=== PATIENT | female | born 1990 | race Caucasian/White ===

== ENCOUNTER 2018-02-02 08:39 | Outpatient (CLI) | payer OTHER | END 2018-02-02 09:03 | disposition home or self-care (01) | LOC: LAB 08:39 | DX: Z34.81 Encounter for supervision of other normal pregnancy, first trimester (principal); Z11.4 Encounter for screening for human immunodeficiency virus [HIV] ==

== ENCOUNTER 2018-08-08 10:47 | Inpatient (IN) | payer OTHER ==
[~2018-08-08] VITALS: Ht 160 cm; Wt 68.0 kg
[2018-09-01] MEDS ORDERED: PRENATAL TABLE1 EAC1 PO (08:21)
[2018-09-01] MEDS ORDERED: VALTREX1000 MG PO (08:21)
== END 2018-09-03 14:16 | disposition home or self-care (01) | DRG 807 ==
LOC: LDR 08-15 11:15 → OB/GYN 09-01 11:55 → LDR 09-04 11:15
PROVIDERS: ADMIT Obstetrics & Gynecology
PROC: 10E0XZZ Delivery of Products of Conception, External Approach (ICD-10-PCS; principal; 2018-09-01)
PROC: 4A1HXCZ Monitoring of Products of Conception, Cardiac Rate, External Approach (ICD-10-PCS; 2018-09-01)
PROC: 0HQ9XZZ Repair Perineum Skin, External Approach (ICD-10-PCS; 2018-09-01)
DX: O70.0 First degree perineal laceration during delivery (principal); Z37.0 Single live birth; Z3A.39 39 weeks gestation of pregnancy

== ENCOUNTER 2018-08-29 09:19 | Outpatient (CLI) | payer OTHER | END 2018-08-29 10:21 | disposition home or self-care (01) | LOC: NST 09:19 | DX: Z34.83 Encounter for supervision of other normal pregnancy, third trimester (principal) ==

== ENCOUNTER 2024-08-29 10:06 | Outpatient (CLI) | payer OTHER ==
[~2024-08-29] VITALS: Ht 157.5 cm; Wt 67.1 kg
[2024-08-29 09:32] VITALS: BP 121/70
[~2024-08-29 10:06] MED LIST: PRENATAL TABLE1 EAC1 PO; VALTREX1000 MG PO
[2024-08-29 13:39] VITALS: BP 121/70
== END 2024-08-29 13:50 | disposition home or self-care (01) ==
LOC: OBS/DEL 10:06
PROVIDERS: ATTEND Obstetrics & Gynecology
DX: O36.8130 Decreased fetal movements, third trimester, not applicable or unspecified (principal); Z3A.28 28 weeks gestation of pregnancy; O26.849 Uterine size-date discrepancy, unspecified trimester; O36.8199 Decreased fetal movements, unspecified trimester, other fetus

== ENCOUNTER 2024-11-01 15:30 | Inpatient (IN) | payer OTHER ==
[~2024-11-01] VITALS: Ht 157.5 cm; Wt 73.0 kg
[2024-11-17] VITALS (8 sets, daily range): BP systolic 116–143; BP diastolic 75–86
[2024-11-17] MEDS ORDERED: RINGERS SOLUTION,LACTATED 1,000 ML IV SCH (01:00)
[2024-11-17] MEDS ORDERED: OXYTOCIN 1,000 ML IV SCH (01:45)
[2024-11-17] MEDS ORDERED: CHLORHEXIDINE GLUCONATE 120 ML BOTTLE TP SCH (01:45)
[2024-11-17] MEDS ORDERED: ERYTHROMYCIN BASE OPHT 1GM EACH TUBE OP ONE (02:00)
[2024-11-17 02:09] LABS: BASO % 0.4 % (0.1-1.2); EOS # 0.04 (0.04-0.54); EOS % 0.7 % (0.7-7.0); LYMPH # 1.83 (1.18-3.74); LYMPH % 33.4 % (19.3-53.1); MEAN PLATELET VOLUME 10.80 fl (9.4-12.4); MONO # 0.46 (0.24-0.82); MONO % 8.4 % (4.7-12.5); NEUT # 3.10 (1.56-6.13); NEUT % 56.6 % (34.0-71.1); RED CELL DISTRIBUTION WIDTH 13.6 % (11.6-14.4)
[2024-11-17 02:19] LABS: INR < 0.93
[2024-11-17 02:24] LABS: ALT/SGPT 15.0 U/L (12-78); AST/SGOT 19.0 U/L (15-37); BILIRUBIN TOTAL 0.41 mg/dL (0.3-1.2); BUN CREA RATIO 13.0 (7.0-25.0); CREATININE SERUM 0.69 mg/dL (0.55-1.02); GFR 97.98; GLOBULINA 3.2 G/DL (2.4-3.5); GLUCOSE FASTING 90.0 mg/dL (65-100); OSMOLALITY SERUM 281.0 MOSM/KG (275-295)
[2024-11-18] VITALS: BP 122/77
[2024-11-18 04:00] VITALS: BP 132/87
[2024-11-18 08:00] VITALS: BP 117/81
[2024-11-18 08:16] LABS: BASO % 0.6 % (0.1-1.2); EOS # 0.15 (0.04-0.54); EOS % 2.1 % (0.7-7.0); LYMPH # 1.84 (1.18-3.74); LYMPH % 25.4 % (19.3-53.1); MEAN PLATELET VOLUME 10.90 fl (9.4-12.4); MONO # 0.44 (0.24-0.82); MONO % 6.1 % (4.7-12.5); NEUT # 4.75 (1.56-6.13); NEUT % 65.5 % (34.0-71.1); RED CELL DISTRIBUTION WIDTH 13.7 % (11.6-14.4)
[2024-11-18 16:47] VITALS: BP 123/82
[2024-11-19] VITALS: BP 120/66
[2024-11-19 04:00] VITALS: BP 116/78
[2024-11-19 07:56] VITALS: BP 130/88
[2024-11-19 13:03] VITALS: BP 131/88
== END 2024-11-19 13:35 | disposition home or self-care (01) | DRG 807 ==
LOC: OB/GYN 11-15 15:30 → LDR 11-17 00:52 → OB/GYN 11-17 01:57
PROVIDERS: ADMIT Obstetrics & Gynecology; ATTEND Obstetrics & Gynecology
PROC: 10E0XZZ Delivery of Products of Conception, External Approach (ICD-10-PCS; principal; 2024-11-17)
PROC: 4A1HXCZ Monitoring of Products of Conception, Cardiac Rate, External Approach (ICD-10-PCS; 2024-11-17)
DX: O80 Encounter for full-term uncomplicated delivery (principal); Z37.0 Single live birth; Z3A.40 40 weeks gestation of pregnancy

== ENCOUNTER 2024-11-15 14:42 | Outpatient (CLI) | payer OTHER | END 2024-11-15 15:40 | disposition home or self-care (01) | LOC: NST 14:42 | PROVIDERS: ATTEND Obstetrics & Gynecology | DX: Z34.83 Encounter for supervision of other normal pregnancy, third trimester (principal) ==